=== PATIENT | female | born 1985 | race Caucasian/White ===

== ENCOUNTER 2025-07-16 15:56 | Outpatient (REF) | payer OTHER, SELFPAY ==
--- NOTE | 2025-07-16 10:50 | PAPFT_PTH ---
PATIENT: Vicki Catherine LOC: [facility] U#:[id number] AGE/SX: 39/F ROOM: RE07/16/[address]: Jairon Anaya NP : 1985 BED: DIS: 07/16/2025 SPEC #: [id number] RECD: 07/16/25 17:39 STATUS: AMNA REQ #: [id number] RONALD: 07/16/25 10:[address]: Jairon Anaya DEPT: [facility] Cytology RECD BY: Janae Cohen Tissues: 1 - CX/ENDOCX FOR PAP SMEARS Procedures: PAP THIN PREP/UVM Screening HPV DNA PROBE Comments: [id number] (HPV 16 & 18/45) (CHLAMYDIA/GC)
[2025-07-17 11:14] LABS: Chlamydia Result Negative (Negative); GC Result Negative (Negative)
== END 2025-07-16 15:57 | disposition home or self-care (01) ==
LOC: LBN 15:56
PROVIDERS: PCP Nurse Practitioner Family; Visit Provider Nurse Practitioner Family
DX: Z12.4 Encounter for screening for malignant neoplasm of cervix (principal)
CPT/HCPCS: 87491; 87591; 88142; 87624